=== PATIENT | female | born 1955 | race Caucasian/White ===

== ENCOUNTER 2017-03-02 14:27 | Emergency (ER) | payer MEDICARE ==
[~2017-03-02] VITALS: Ht 157.5 cm; Wt 49.0 kg
[~2017-03-02 14:27] MED LIST: CLONIDINE HCL0.1 MG PO; HYDROMORPHONE HC2 MG PO; MELOXICAM15 MG PO; NORTRIPTYLINE H10 MG PO; PANTOPRAZOLE SO40 MG PO; PROPRANOLOL HC120 MG PO; TRAZODONE HCL150 MG PO; ZOFRAN ODT4 MG PO
[2017-03-02] MEDS ORDERED: NAPROXEN SODIU500 MG PO (14:43)
[2017-03-02] MEDS ORDERED: DIAZEPAM5 MG PO (14:43)
[2017-03-02] MEDS ORDERED: MACROBID 100 M100 MG PO (16:58)
[2017-03-02] MEDS ORDERED: ZOFRAN4 MG PO (16:58)
== END 2017-03-02 17:51 | disposition home or self-care (01) ==
LOC: ED 14:27
DX: R19.7 Diarrhea, unspecified (principal); F17.200 Nicotine dependence, unspecified, uncomplicated; Z86.19 Personal history of other infectious and parasitic diseases; Z90.49 Acquired absence of other specified parts of digestive tract; Z98.51 Tubal ligation status; Z88.5 Allergy status to narcotic agent; Z91.011 Allergy to milk products; Z79.899 Other long term (current) drug therapy
CPT/HCPCS: 80053; 81001; 85025; 99283

== ENCOUNTER 2017-05-15 07:43 | Day surgery (SDC) | payer MEDICARE ==
[~2017-05-15] VITALS: Ht 157.5 cm; Wt 50.8 kg
[~2017-05-15 07:43] MED LIST changes: +DIAZEPAM5 MG PO; +MACROBID 100 M100 MG PO; +NAPROXEN SODIU500 MG PO; +ZOFRAN4 MG PO
[2017-06-11] MEDS ORDERED: OXYBUTYNIN CHLOR5 MG PO (08:40)
== END 2017-05-15 09:05 | disposition home or self-care (01) ==
LOC: OPS 07:43 → DS 07:43 → OPS 08:30
PROVIDERS: Ophthalmology
PROC: 08RJ3JZ Replacement of Right Lens with Synthetic Substitute, Percutaneous Approach (ICD-10-PCS; principal; 2017-05-15 08:30)
DX: H25.13 Age-related nuclear cataract, bilateral (principal); K21.9 Gastro-esophageal reflux disease without esophagitis; M19.90 Unspecified osteoarthritis, unspecified site; Z87.891 Personal history of nicotine dependence; Z98.51 Tubal ligation status; Z98.890 Other specified postprocedural states; Z88.5 Allergy status to narcotic agent; Z79.1 Long term (current) use of non-steroidal anti-inflammatories (NSAID); Z79.891 Long term (current) use of opiate analgesic; Z79.899 Other long term (current) drug therapy
CPT/HCPCS: J2250

== ENCOUNTER 2017-06-12 07:31 | Day surgery (SDC) | payer MEDICARE ==
[~2017-06-12] VITALS: Ht 157.5 cm; Wt 50.8 kg
[~2017-06-12 07:31] MED LIST changes: +OXYBUTYNIN CHLOR5 MG PO
== END 2017-06-12 09:35 | disposition home or self-care (01) ==
LOC: DS 07:31 → OPS 07:31 → DS 08:30 → OPS 09:35
PROVIDERS: Ophthalmology
PROC: 08RK3JZ Replacement of Left Lens with Synthetic Substitute, Percutaneous Approach (ICD-10-PCS; principal; 2017-06-12 08:30)
DX: H25.12 Age-related nuclear cataract, left eye (principal); K21.9 Gastro-esophageal reflux disease without esophagitis; M19.90 Unspecified osteoarthritis, unspecified site; I10 Essential (primary) hypertension; Z88.5 Allergy status to narcotic agent; Z87.891 Personal history of nicotine dependence; Z79.1 Long term (current) use of non-steroidal anti-inflammatories (NSAID); Z79.891 Long term (current) use of opiate analgesic; Z79.899 Other long term (current) drug therapy
CPT/HCPCS: J2250

== ENCOUNTER 2023-03-19 13:51 | Emergency (ER) | payer MEDICARE ==
[~2023-03-19] VITALS: Ht 154.9 cm; Wt 59.4 kg
[~2023-03-19 13:51] MED LIST changes: +NORCO 5-325 TA1 EACH PO
[2023-03-19 14:09] LABS: BASOPHILS 0.8 % (0-2); EOSINOPHILS 1.5 % (0-6); HEMATOCRIT 46.7 % (35.0-50.0); HEMOGLOBIN 15.7 g/dL (12.0-18.0); LYMPHOCYTES 31.1 % (24-44); MCH 30.3 (27-36); MCHC 33.7 g/dl (30-36); MCV 89.9 fl (81-99); MONOCYTES 5.7 % (0-12); NEUTROPHILS 60.9 % (39-80); PLATELET COUNT 250 K/uL (140-440); RBC 5.19 M/ul (4.3-5.7); RDW 13.8 (10.5-15.0)
[2023-03-19 14:21] LABS: ALBUMIN 4.1 g/dL (3.4-5.0); ALBUMIN/GLOBULIN RATIO 1.08 (1.1-2.4); ANION GAP 16.4 (7-21); BILIRUBIN, TOTAL 0.6 ng/dL (0.2-1.0); BUN/CREATININE RATIO 11.32 (6.0-28.6); CALCIUM 9.2 mg/dL (8.5-10.1); CREATININE, SERUM 1.06 mg/dL (0.55-1.02); POTASSIUM 3.4 mmol/L (3.5-5.1); PROTEIN, TOTAL 7.9 g/dL (6.4-8.2)
[2023-03-19 17:05] LABS: BILIRUBIN, URINE NEGATIVE (negative); BLOOD/HGB, URINE TRACE-I (Negative); KETONE, URINE TRACE (Negative); LEUK ESTERASE, URINE NEGATIVE (negative); NITRITE, URINE NEGATIVE (negative); PH, URINE 5.5 (5-7)
[2023-03-19 17:15] LABS: BACTERIA, URINE 1+ /hpf (negative); CRYSTALS, URINE NONE SEEN (0-1+); EPITHELIAL CELLS, URINE SQUAMOUS 1+ /lpf (0-1+)
[2023-03-19 17:16] LABS: CASTS, URINE NONE SEEN \\lpf; COLLECTION TYPE, URINE CLEAN CATCH; REFLEX CULTURE, URINE No (No)
[2023-03-19] MEDS ORDERED: VITAMIN D325 MC2 PO (18:24)
[2023-03-19] MEDS ORDERED: PROPRANOLOL HCL40 MG PO (18:25)
[2023-03-19] MEDS ORDERED: VITAMIN B122500 MC1 PO (18:25)
[2023-03-19] MEDS ORDERED: ZESTRIL40 MG PO (18:26)
[2023-03-19] MEDS ORDERED: PRAVASTATIN SOD20 MG PO (18:26)
[2023-03-19] MEDS ORDERED: MIRAPEX0.125 MG PO (18:26)
[2023-03-19 18:52] VITALS: BP 151/80
== END 2023-03-19 18:53 | disposition home or self-care (01) ==
LOC: ED 13:51
PROVIDERS: Emergency Medicine
DX: K52.9 Noninfective gastroenteritis and colitis, unspecified (principal); Z88.5 Allergy status to narcotic agent; Z79.899 Other long term (current) drug therapy
CPT/HCPCS: 36415; 80053; 81001; 83690; 85025; J7030